=== PATIENT | male | born 1955 | race Caucasian/White ===

== ENCOUNTER 2019-08-09 23:42 | Emergency (ER) | payer MEDICARE ==
[2019-08-10 00:36] LABS: Basophils # (Auto) 0.2 K/mm3 (0.0-0.1); Basophils % (Auto) 1.7 % (0.0-1.8); Eosinophils # (Auto) 0.2 K/mm3 (0.0-0.4); Eosinophils % (Auto) 1.2 % (0.0-4.3); Hematocrit 47.4 % (35.5-45.6); Lymphocytes % (Auto) 7.3 % (13.4-35.0); Mean Corpuscular HGB Conc 34 % (32-34); Mean Corpuscular Volume 94 fl (84-94); Monocytes # (Auto) 0.1 K/mm3 (0.0-0.8); Monocytes % (Auto) 0.8 % (0.0-7.3); Red Blood Count 5.03 M/mm3 (3.65-5.03); Red Cell Distribution Width 13.5 % (13.2-15.2)
[2019-08-10 00:37] LABS: Bacteria,Urine 1+ /HPF (Negative); Bilirubin,Urine NEG (Negative); Blood,Urine MOD (Negative); Color,Urine Yellow (Yellow); Mucus,Urine 3+ /HPF; Protein,Urine <15 mg/dL mg/dL (Negative); Urobilinogen,Urine < 2.0 mg/dL (<2.0)
[2019-08-10 00:40] LABS: Platelet Count 179 K/mm3 (140-440)
[2019-08-10 00:54] LABS: BUN/Creatinine Ratio 21; Blood Urea Nitrogen 21 mg/dL (9-20); Calcium 9.2 mg/dL (8.4-10.2); Hemolysis Index 10
[2019-08-10] MEDS ORDERED: MORPHINE IV ONE (01:42)
[2019-08-10] MEDS ORDERED: ZOFRAN IV ONE (01:42)
--- NOTE | 2019-08-10 01:47 | Emergency Department Report ---
ED Abdominal Pain HPI - General Chief Complaint: Abdominal Pain Stated Complaint: ABD PAIN Time Seen by Provider: 08/10/19 01:37 Source: patient, family Mode of arrival: Stretcher Limitations: Language Barrier - History of Present Illness Initial Comments: Patient is 64 years old male with no significant past medical history except for a kidney stone. Patient presented to the ER complaining of left flank pain that radiated down to his left lower quadrant and to the groin area. Patient stated that pain started just prior to coming to the ER. Patient stated that he has an urge to urinate but nothing is coming out. Patient denied any fever or chills. MD Complaint: abdominal pain, flank pain -: This morning Location: LLQ, L flank Radiation: none Migration to: no migration Severity scale (0 -10): 7 Quality: sharp Associated Symptoms: denies other symptoms - Related Data Allergies Allergy/AdvReac Type Severity Reaction Status Date / Time No Known Allergies Allergy Unverified 08/10/19 00:09 ED Review of Systems ROS: Stated complaint: ABD PAIN Other details as noted in HPI Comment: All other systems reviewed and negative Constitutional: denies: chills, fever Respiratory: denies: cough, shortness of breath, SOB with exertion Cardiovascular: denies: chest pain, palpitations Gastrointestinal: abdominal pain, nausea. denies: vomiting, diarrhea, constipation, hematemesis, melena, hematochezia Genitourinary: urgency, dysuria, frequency. denies: discharge, testicular pain, testicular mass Musculoskeletal: back pain Neurological: denies: headache, weakness, numbness, paresthesias, confusion ED Past Medical Hx - Past Medical History Hx Hypertension: Yes Additional medical history: high cholesterol - Social History Smoking Status: Never Smoker ED Physical Exam - General Limitations: Language Barrier General appearance: alert, in no apparent distress - Head Head exam: Present: atraumatic, normocephalic, normal inspection - Eye Eye exam: Present: normal appearance - ENT ENT exam: Present: normal exam, normal orophraynx, mucous membranes moist - Neck Neck exam: Present: normal inspection, full ROM. Absent: tenderness, meningismus, lymphadenopathy, thyromegaly - Respiratory Respiratory exam: Present: normal lung sounds bilaterally - Cardiovascular Cardiovascular Exam: Present: regular rate, normal rhythm, normal heart sounds - GI/Abdominal GI/Abdominal exam: Present: soft, normal bowel sounds. Absent: distended, tenderness, guarding, rebound, rigid, organomegaly, mass, bruit, pulsatile mass, hernia - Extremities Exam Extremities exam: Present: normal inspection, full ROM, normal capillary refill. Absent: tenderness, pedal edema, joint swelling, calf tenderness - Back Exam Back exam: Present: normal inspection, full ROM. Absent: CVA tenderness (R), CVA tenderness (L), muscle spasm, paraspinal tenderness, vertebral tenderness - Neurological Exam Neurological exam: Present: alert, oriented X3, CN II-XII intact, normal gait, reflexes normal - Psychiatric Psychiatric exam: Present: normal mood - Skin Skin exam: Present: warm, intact, normal color ED Course Vital Signs 08/10/19 08/10/19 08/10/19 00:07 01:20 02:00 Temperature 98.2 F 98.3 F Pulse Rate 66 63 59 L Respiratory 18 24 21 Rate Blood Pressure 169/92 184/95 Blood Pressure 185/91 [Right] O2 Sat by Pulse 99 98 98 Oximetry 08/10/19 08/10/19 08/10/19 02:30 02:45 03:00 Temperature Pulse Rate 63 Respiratory 18 20 16 Rate Blood Pressure 155/90 Blood Pressure [Right] O2 Sat by Pulse 98 Oximetry ED Medical Decision Making - Lab Data Result diagrams: 08/10/19 00:19 08/10/19 00:19 - Radiology Data Radiology results: report reviewed - Medical Decision Making Patient is 64 years old male with no significant past medical history except for a kidney stone. Patient presented to the ER complaining of left flank pain that radiated down to his left lower quadrant and to the groin area. Patient stated that pain started just prior to coming to the ER. Patient stated that he has an urge to urinate but nothing is coming out. Patient denied any fever or chills. Patient received morphine and Zofran. Patient stated that he is feeling better. CT abdomen and pelvis showed a left ureteric stone 6 mm obstructing. Patient given Dr. Fisher to follow-up with and advised to return to the ER if symptoms are not improved. Critical care attestation.: If time is entered above; I have spent that time in minutes in the direct care of this critically ill patient, excluding procedure time. ED Disposition Clinical Impression: Ureter colic, Abdominal pain Disposition: DC-01 TO HOME OR SELFCARE Is pt being admited?: No Condition: Stable Instructions: Kidney Stones (ED) Referrals: PRIMARY CAREMD [Primary Care Provider] - 3-5 Days UDAY FISHER MD [Staff Physician] - 3-5 Days
--- NOTE | 2019-08-10 04:16 | Cat Scan Report ---
CT abdomen pelvis wo con INDICATION: ABDOMINAL PAIN. TECHNIQUE: All CT scans at this location are performed using the following dose modulation technique: Automated exposure control. Helical slices were obtained through the abdomen and pelvis. No contrast is adminis tered. COMPARISON: None available. FINDINGS: Abdomen: There is minimal dependent atelectasis in the lung bases. The liver, spleen, pancreas, adren al glands, and small bowel are unremarkable. There is bilateral nephrolithiasis. There is perinephric stranding/edema on the left. There is mild dilatation of the left renal collecting system and left u reter. The bowel is unremarkable. The appendix is normal in appearance. Pelvis: There is a 6 mm wide by 10 mm long stone in the distal left ureter. There is no inflammatory change. There is no adenopathy. On review of bone windows, no acute osseous abnormalities are seen. IMPRESSION: 1. There is a 6 mm wide by 10 mm long obstructing stone in the distal left ureter there is mild hydro nephrosis. There is perinephric stranding. There is bilateral nephrolithiasis. Signer Name: Conrad Shaikh MD Signed: 08/10/2019 4:12 AM Workstation Name: [id number]
[2019-08-10 05:21] VITALS: BP 167/82
== END 2019-08-10 05:00 | disposition home or self-care (01) ==
LOC: ED 23:42
DX: N23 Unspecified renal colic (principal); I10 Essential (primary) hypertension; E78.00 Pure hypercholesterolemia, unspecified; Z87.442 Personal history of urinary calculi
CPT/HCPCS: 36415; 74176; 80048; 81001; 85025; 96374; 96375; 99284; J2270; J2405